=== PATIENT | male | born 1940 | race Caucasian/White ===

== ENCOUNTER 2018-01-26 10:02 | Inpatient (IN) | payer BC ==
[2018-01-26] MEDS ORDERED: hydrALAzine 20 MG INJ IV ×2 (10:30→16:00)
[2018-01-26] MEDS ORDERED: LABETALOL HCL 20MG INJ IV (10:30)
[2018-01-26] MEDS ORDERED: HYDROmorphONE 1 MG/5 ML IV SYRINGE IV ×3 (10:30)
[2018-01-26] MEDS ORDERED: DIPHENHYDRAMINE 50 MG INJ IV (10:30)
[2018-01-26] MEDS ORDERED: EPHEDrine SULFATE 50 MG/5 ML SYG IV (10:30)
[2018-01-26] MEDS ORDERED: morphine (1 MG/ML) 10ML SYRINGE IV ×3 (10:30)
[2018-01-26] MEDS ORDERED: MIDAZOLAM 1 MG/ML 2 ML INJ IV (10:30)
[2018-01-26] MEDS ORDERED: ONDANSETRON 4 MG INJ IV ×2 (10:30→16:00)
[2018-01-26] MEDS ORDERED: FENTAnyl 50 MCG/ML VIAL IV ×2 (10:30)
[2018-01-26] MEDS ORDERED: ATROPINE 1 MG/10 ML SYRINGE IV (10:30)
[2018-01-26] MEDS ORDERED: OXYCODONE/ACETAMINOPHEN (5/325) TAB PO ×2 (10:30)
[2018-01-26] MEDS ORDERED: MEPERIDINE 25 MG INJ IV (10:30)
[2018-01-26] MEDS ORDERED: LACTATED RINGER'S 1,000 ML IV (12:00)
[2018-01-26] MEDS ORDERED: FENTAnyl 50 MCG/ML VIAL (12:59)
[2018-01-26] MEDS ORDERED: LIDOCAINE 2% (SDV) 5 ML INJ (12:59)
[2018-01-26] MEDS ORDERED: GLYCOPYRROLATE 0.4 MG INJ (12:59)
[2018-01-26] MEDS ORDERED: PROPOFOL 20 ML (12:59)
[2018-01-26] MEDS ORDERED: ROCURONIUM 50 MG INJ (12:59)
[2018-01-26] MEDS ORDERED: NEOSTIGMINE 3 MG/3 ML SYRINGE (12:59)
[2018-01-26] MEDS ORDERED: MIDAZOLAM 1 MG/ML 2 ML INJ (12:59)
[2018-01-26] MEDS ORDERED: ONDANSETRON 4 MG INJ (13:00)
[2018-01-26] MEDS ORDERED: DEXAMETHASONE 4 MG/ML 1 ML INJ (13:00)
[2018-01-26] MEDS ORDERED: SUCCINYLCHOLINE CHLORIDE 100 MG/5 ML SYG IV (13:05)
[2018-01-26] MEDS: CEFTRIAXONE 1 GM/50 ML (PMX) 50 ML IVPB (13:10)
[2018-01-26] MEDS: DEXTROSE 5%-0.45% NACL 1,000 ML IV (15:46)
[2018-01-26] MEDS ORDERED: HYDROCODONE/APAP (5/325) TAB PO (16:00)
[2018-01-26] MEDS ORDERED: NA PHOSPHATE/BIPHOS 133 ML ENEMA PR (16:00)
[2018-01-26] MEDS ORDERED: NACL 0.9% 3 ML SYG IV (16:00)
[2018-01-26] MEDS ORDERED: morphine 2 MG INJ IV (16:00)
[2018-01-26] MEDS ORDERED: MAGNESIUM HYDROXIDE 30ML CUP PO (16:00)
[2018-01-26] MEDS ORDERED: NITROGLYCERIN (SL) 0.4 MG TAB SL (16:00)
[2018-01-26] MEDS ORDERED: DOCUSATE SODIUM 100 MG CAP PO (16:00)
[2018-01-26] MEDS ORDERED: ALBUTEROL/IPRATROPIUM (NEB) 3 ML AMP HHN (16:00)
[2018-01-26] MEDS ORDERED: ACETAMINOPHEN 325 MG TAB PO (16:00)
[2018-01-26] MEDS ORDERED: LORAZEPAM 2 MG INJ IV (16:00)
[2018-01-26 17:37] LABS: FREE T4 (FREE THYROXINE) 1.27 ng/dl (0.78-2.44)
[2018-01-27 06:09] LABS: ADD MAN DIFF? NO
[2018-01-27 06:22] LABS: WHITE BLOOD COUNT 5.3 10^3/ul (4.8-10.8)
[2018-01-27 06:22] LABS: HEMATOCRIT 35.6 % (42.0-52.0); HEMOGLOBIN 11.9 g/dl (14.0-18.0); LYMPHOCYTES # 0.6 10^3/ul (0.8-2.9); LYMPHOCYTES % 11.2 % (15.0-51.0); MEAN CORPUSCULAR HEMOGLOBIN 28.9 pg (29.0-33.0); MEAN CORPUSCULAR HGB CONC 33.4 g/dl (32.0-37.0); MEAN CORPUSCULAR VOLUME 86.4 fl (82.0-101.0); MEAN PLATELET VOLUME 11.1 fl (7.4-10.4); MONOCYTE # 0.3 10^3/ul (0.3-0.9); MONOCYTES % 4.7 % (0.0-11.0); NEUTROPHIL # 4.5 10^3/ul (1.6-7.5); NEUTROPHILS % 83.9 % (39.0-77.0); PLATELET COUNT 135 10^3/UL (140-415); POSITIVE DIFF @See below; RED BLOOD COUNT 4.12 10^6/ul (4.70-6.10); RED CELL DISTRIBUTION WIDTH 12.8 % (11.5-14.5)
[2018-01-27] MEDS: PANTOPRAZOLE (EC) 40 MG TAB PO (06:46)
[2018-01-27 06:50] LABS: HEMOGLOBIN A1C 6.6 % (0-5.9)
[2018-01-27 07:03] LABS: ANION GAP 17 (8-16); BLOOD UREA NITROGEN 15 mg/dl (7-20); CALCIUM 9.1 mg/dl (8.4-10.2); CARBON DIOXIDE 26 mmol/L (21-31); CHLORIDE 105 mmol/L (97-110); CREATININE 0.75 mg/dl (0.61-1.24); GLUCOSE 145 mg/dl (70-220); MAGNESIUM 1.9 mg/dl (1.7-2.5); PHOSPHORUS 4.6 mg/dl (2.5-4.9); POTASSIUM 5.2 mmol/L (3.5-5.1); SODIUM 143 mmol/L (135-144)
[2018-01-27 07:27] LABS: THYROID STIMULATING HORMONE 0.143 MIU/L (0.465-4.680)
[2018-01-27 07:35] LABS: CHOL/HDL RATIO 3.5 RATIO; HDL CHOLESTEROL 40 mg/dl (31-75); LDL CHOLESTEROL,CALCULATED 92 mg/dl; TRIGLYCERIDES 55 mg/dl (0-149)
[2018-01-27 07:35] LABS: CHOLESTEROL 143 mg/dl (100-200)
[2018-01-27] MEDS: AMLODIPINE 5 MG TAB PO (08:24)
[2018-01-27] MEDS: FINASTERIDE 5 MG TAB PO (08:24)
[2018-01-27] MEDS: ATENOLOL 50 MG TAB PO (08:24)
[2018-01-27] MEDS ORDERED: TAMSULOSIN (SR) 0.4 MG CAP PO (09:00)
[2018-01-27] MEDS: NA POLYST SULFON 15 GM/60 ML BTL PO (13:28)
[2018-01-27] MEDS: DEXTROSE 5%-0.45% NACL 1,000 ML IV (15:04)
[2018-01-27 17:11] LABS: ANION GAP 14 (8-16); BLOOD UREA NITROGEN 18 mg/dl (7-20); CALCIUM 8.7 mg/dl (8.4-10.2); CARBON DIOXIDE 25 mmol/L (21-31); CHLORIDE 103 mmol/L (97-110); CREATININE 0.83 mg/dl (0.61-1.24); GLUCOSE 144 mg/dl (70-220); POTASSIUM 4.4 mmol/L (3.5-5.1); SODIUM 138 mmol/L (135-144)
[2018-01-28 06:14] LABS: ADD MAN DIFF? NO
[2018-01-28 06:25] LABS: BASOPHILS % 0.2 % (0.0-2.0); EOSINOPHILS # 0.1 10^3/ul (0.0-0.5); HEMATOCRIT 34.6 % (42.0-52.0); HEMOGLOBIN 11.8 g/dl (14.0-18.0); LYMPHOCYTES # 1.3 10^3/ul (0.8-2.9); LYMPHOCYTES % 21.5 % (15.0-51.0); MEAN CORPUSCULAR HGB CONC 34.1 g/dl (32.0-37.0); MEAN PLATELET VOLUME 11.3 fl (7.4-10.4); MONOCYTE # 0.5 10^3/ul (0.3-0.9); MONOCYTES % 7.5 % (0.0-11.0); NEUTROPHIL # 4.2 10^3/ul (1.6-7.5); NEUTROPHILS % 69.6 % (39.0-77.0); PLATELET COUNT 129 10^3/UL (140-415); POSITIVE DIFF @See below; RED BLOOD COUNT 4.07 10^6/ul (4.70-6.10)
[2018-01-28] MEDS: PANTOPRAZOLE (EC) 40 MG TAB PO (06:30)
[2018-01-28 07:00] LABS: ANION GAP 13 (8-16); BLOOD UREA NITROGEN 15 mg/dl (7-20); CALCIUM 8.8 mg/dl (8.4-10.2); CARBON DIOXIDE 30 mmol/L (21-31); CHLORIDE 106 mmol/L (97-110); CREATININE 0.84 mg/dl (0.61-1.24); GLUCOSE 131 mg/dl (70-220); POTASSIUM 4.6 mmol/L (3.5-5.1); SODIUM 144 mmol/L (135-144)
[2018-01-28] MEDS: FINASTERIDE 5 MG TAB PO (09:09)
[2018-01-28] MEDS: ATENOLOL 50 MG TAB PO (09:11)
[2018-01-28] MEDS: AMLODIPINE 5 MG TAB PO (09:12)
== END 2018-01-28 14:30 | disposition home health service (06) | DRG 714 ==
LOC: SDS 10:02 → TEL 18:04 → SDS 15:47 → REC 15:47 → TEL 18:24
PROVIDERS: Hospitalist
PROC: 0VT08ZZ Resection of Prostate, Via Natural or Artificial Opening Endoscopic (ICD-10-PCS; principal; 2018-01-26 12:30)
DX: N40.1 Benign prostatic hyperplasia with lower urinary tract symptoms (principal); R33.8 Other retention of urine; I10 Essential (primary) hypertension; E11.9 Type 2 diabetes mellitus without complications; Z79.4 Long term (current) use of insulin; Z79.82 Long term (current) use of aspirin; Z79.84 Long term (current) use of oral hypoglycemic drugs; Z87.891 Personal history of nicotine dependence
CPT/HCPCS: 80048; 80061; 82962; 83036; 83735; 84100; 84439; 84443; 85025; 86850; 86900; 86901; 86920; 87086; 88307; 97162